=== PATIENT | male | born 1940 | race Caucasian/White ===

== ENCOUNTER 2019-11-03 14:49 | Outpatient (CLI) | payer MEDICARE ==
[~2019-11-03 14:49] MED LIST: BARIUM SULFATE 340 ML SUSP.RECON***PROCEDURE AREA ONLY**DONT ENTER PO ONE
== END 2019-11-03 23:59 | disposition home or self-care (01) ==
LOC: RAD 14:49
PROVIDERS: ATTEND Otolaryngology
DX: R13.12 Dysphagia, oropharyngeal phase (principal); R49.0 Dysphonia; R47.1 Dysarthria and anarthria; K21.9 Gastro-esophageal reflux disease without esophagitis
CPT/HCPCS: 74220; 74230